=== PATIENT | male | born 2000 | race Caucasian/White ===

== ENCOUNTER 2019-01-17 22:15 | Emergency (ER) | payer SELFPAY ==
[2019-01-17 22:17] VITALS: BP 128/69; PULSE 82; RESP 17; TEMP 36.7; O2SAT 97; BMI 37.4
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
--- NOTE | 2019-01-17 23:10 | ED.DEP ---
ED Disposition - Plan for ED Patient: Instructions: Shoulder Sprain Referrals: NOT,DEFINED [Primary Care Provider] -
[2019-01-17 23:40] VITALS: BP 126/80; PULSE 78; RESP 16; O2SAT 98
== END 2019-01-17 23:41 | disposition home or self-care (01) ==
LOC: ED 23:29
PROVIDERS: Emergency Provider Emergency Medicine
DX: S43.401A Unspecified sprain of right shoulder joint, initial encounter (principal); V89.0XXA Person injured in unspecified motor-vehicle accident, nontraffic, initial encounter; Y93.I9 Activity, other involving external motion; Y92.9 Unspecified place or not applicable; Y99.8 Other external cause status; Z72.0 Tobacco use
CPT/HCPCS: 73030; 99282

== ENCOUNTER 2021-08-23 14:24 | Emergency (ER) | payer MEDICAID, SELFPAY ==
[2021-08-23 14:25] VITALS: BP 146/105; PULSE 107; RESP 18; TEMP 36.4; O2SAT 96; BMI 34.8
--- NOTE | 2021-08-23 15:40 | CASEMGMT ---
KEEGAN FERRO to patient's room to provide patient with [facility] Healthcare Provider Directory as patient has no PCP listed on record. Patient advises that he believes he does have a PCP in [place] but is unable to recall her name. Provider directory provided as resource. -KEEGAN Mcnair CM
[2021-08-23] MEDS: dexAMETHasone 10 MG/ML Vial PO.IVFORM (15:49)
--- NOTE | 2021-08-23 19:59 | EX.ED.VIS.UR ---
HPI HPI - URI History of Present Illness Chief Complaint: Sore Throat Narrative Narrative: Patient presenting with concern for sore throat and uvula swelling. Patient states he also has cough and congestion. He denies fever. He denies shortness of breath. He states he had to leave work to come here to be evaluated for his sore throat. He is concerned for strep throat. He states that he has vomited but is because his uvula is large and he keeps touching it with his tongue and this gags him. He does not have nausea. No chest pain. He states he is eating and drinking normally. ROS ROS ED Constitutional Constitutional ED: Denies fever(s) or sweats Eyes Eyes: Denies blurry vision or diplopia ENT ENT ED: Reports rhinorrhea and sore throat Cardiovascular Cardiovascular: Denies chest pain or palpitations Respiratory/Chest Respiratory/Chest: Reports cough; Denies dyspnea or sputum Gastrointestinal Gastrointestinal: Reports vomiting; Denies abdominal pain or nausea Genitourinary Genitourinary ED: Denies dysuria or hematuria Musculoskeletal Musculoskeletal: Denies arthralgias or myalgias Integumentary Denies rash Neurologic Neurologic: Denies headache(s) or weakness [facility] Medical History Depression Home Medications NK 01/17/19 [History Last Taken Unknown] Allergy/AdvReac Type Severity Reaction Status Date / Time No Known Allergies Allergy Verified 08/23/21 14:27 Social History Smoking Status: Current every day smoker tobacco type: cigarettes EXAM Physical Exam Const Vital Signs: 08/23/21 14:25 Temperature 97.5 F L Temperature Source Temporal Pulse Rate 107 H Respiratory Rate 18 Blood Pressure 146/105 H Blood Pressure Mean 118 Pulse Ox 96 Oxygen Delivery Method Room Air Positive well nourished General Appearance ED: NAD; Negative for pallor HEENT HEENT Narrative: Uvula slightly edematous. No posterior oropharyngeal exudates. Airway patent without stridor. normocephalic and atraumatic Neck no lymphadenopathy, supple and no meningeal signs Resp normal respiratory effort and clear to auscultation bilaterally Cardio Rate: regular rate Rhythm: regular rhythm Neuro oriented x3 and CN's II-XII intact bilaterally Sensorium / Orientation: alert Motor Exam: strength 5/5 throughout Psych mental status grossly normal Skin General Skin Exam: Negative for jaundice or pallor MDM MDM MDM Narrative Medical decision making narrative: Patient presenting with a swollen uvula. He states he is vomited because of the sensation of gagging himself from the uvula being swollen. He admits to cough and congestion. He is not had a fever. He refuses testing for Covid but requested strep test. This was negative. Patient was given 10 mg of Decadron p.o. for sore throat. He request a work note for today. This is provided. Patient was discharged home in stable condition. Impression: 1. Uvulitis Discharge Plan Triage Chief Complaint: Sore Throat ED Provider: Flynn Gardner Dx/Rx/DC Orders Instructions: ED Uvulitis Prescriptions: No Action NK RF: 0 Stand Alone Forms: ED Work / School Excuse Primary Care Provider: Care Physician,No Primary Referrals: Elliott Nails MD [STAFF PHYSICIAN] - As soon as possible Care Physician,No Primary [Primary Care Provider] - Disposition Disposition: Home, Self Care Discharge Date/Time: 08/23/21 15:44
== END 2021-08-23 15:44 | disposition home or self-care (01) ==
PROVIDERS: Emergency Provider Student in an Organized Health Care Education/Training Program; Visit Provider Student in an Organized Health Care Education/Training Program
DX: K12.2 Cellulitis and abscess of mouth (principal); F17.210 Nicotine dependence, cigarettes, uncomplicated
CPT/HCPCS: 87880; 99282